=== PATIENT | female | born 1940 | race Caucasian/White ===

== ENCOUNTER 2020-01-19 02:23 | Day surgery (SDC) | payer MEDICARE, OTHER, SELFPAY ==
[2020-01-15 08:52] VITALS: BMI 24.5
[2020-01-19 07:07] VITALS: BP 150/80; PULSE 89; RESP 18; TEMP 36.7; O2SAT 97
[2020-01-19] MEDS: LACTATED RINGERS 1,000 ML 150 ML IV CONT (07:12)
--- NOTE | 2020-01-19 07:57 | WPDANESEPPF ---
Anes - Initial Pre Proc Eval Procedure: Operation Date: 01/19/20 08:00 Proposed Procedures p Colonoscopy - Júnior Collier MD Date/Time: 01/19/20 07:57 Surgeon: Júnior Collier MD Pre Op Diagnosis: positive cologuard, hx polyps Patient Data Age: 79 Gender: F Height: 5 ft Weight: 56.9 kg Last Vital Signs Temp 36.7 C 01/19/20 07:07 Pulse 89 01/19/20 07:07 Resp 18 01/19/20 07:07 BP 150/80 H 01/19/20 07:07 Pulse Ox 97 01/19/20 07:07 Allergies Allergy/AdvReac Type Severity Reaction Status Date / Time No Known Allergies Allergy Verified 01/19/20 06:59 Home Medications Medication Instructions Recorded Confirmed Type alprazolam 0.25 mg PO DAILY PRN 01/15/20 01/19/20 History fluoride (sodium) [PreviDent 5000 1 applic PO HS 01/15/20 01/19/20 History Dry Mouth] lisinopril 5 mg PO QAM 01/15/20 01/19/20 History nystatin-triamcinolone 1 applic TOPICAL DAILY PRN 01/15/20 01/19/20 History simvastatin 20 mg PO HS 01/15/20 01/19/20 History Patient hx anesthesia problems: none Family hx anesthesia problems: none PMFSH Past Medical History Medical History Hyperlipidemia Hypertension Anes - Eval Final PreProcedure Day of Procedure 01/19/20 07:57 Patient weight: normal Heart: regular rate and rhythm Lungs: clear to auscultation Airway: Mallampati scale class 1 Neurological: alert and oriented Last oral intake: >/= 8 hours ASA classification: II Emergent: no Anesthetic plan: proceed Anesthesia type and monitoring: general GIVS and standard monitoring Informed Consent: The patient's anesthetic plan and its attendant risks and benefits were discussed with the patient/family/POA. Questions were solicited and answers provided to the satisfaction of the patient/family/POA.
--- NOTE | 2020-01-19 08:03 | P.CONGI_ITS ---
Assessment and Plan Additional Plan This is a 79-year-old white female patient seen in evaluation at the request of Dr. Zavala. Patient is referred because of a positive: ColoGuard test. Patient states that her current weight appetite bowel movements are normal. She denies abdominal pain she denies any blood in her stools. She does have a history of hemorrhoids her occasionally sore cause some discomfort. She denies any obvious bleeding. Past medical history is significant for colon polyps identified by colonoscopy [place] [address] Briggs. She has been treated for hyperlipidemia and hypertension. family history is noncontributory. There is no known history of colon or rectal disease within the family. Current medications include alprazolam. Lisinopril. And simvastatin. She has no stated drug allergies. Physical exam reveals patient to be alert. Vital signs stable. HEENT exam unremarkable. She is anicteric. Lungs are clear to auscultation and percussion. Heart is without murmur or extra sounds. Abdominal exam bowel sounds are present soft nontender with no organomegaly. Digital external rectal exam is normal. Impression 1. Personal history of colon polyps. 2. Rectal pain. 3. History hemorrhoids. 4. Positive: ColoGuard test. Plan is for a high-fiber diet. Fiber supplements may help. Colonoscopy will be performed for screening purposes now and advised in 5 years. GI Consult Note Consult date/time: 01/19/20 08:03 HPI: Kayla Iqbal is a 79 year old female FORMERLY [facility], 1928–1983 Past Medical History Medical History Hyperlipidemia Hypertension Meds Home Medications and Allergies Home Medications Medication Instructions Recorded Confirmed Type alprazolam 0.25 mg PO DAILY PRN 01/15/20 01/19/20 History fluoride (sodium) [PreviDent 5000 1 applic PO HS 01/15/20 01/19/20 History Dry Mouth] lisinopril 5 mg PO QAM 01/15/20 01/19/20 History nystatin-triamcinolone 1 applic TOPICAL DAILY PRN 01/15/20 01/19/20 History simvastatin 20 mg PO HS 01/15/20 01/19/20 History Allergies Allergy/AdvReac Type Severity Reaction Status Date / Time No Known Allergies Allergy Verified 01/19/20 06:59 Vital Signs Vital Signs - 24 hr 01/19/20 07:07 Temperature 36.7 C Pulse Rate 89 Respiratory Rate 18 Blood Pressure 150/80 H Pulse Oximetry 97
[2020-01-19 08:24] VITALS: BP 105/57; PULSE 69; RESP 18; O2SAT 100
[2020-01-19 08:34] VITALS: BP 122/67; PULSE 63; RESP 18; O2SAT 100
[2020-01-19 08:44] VITALS: BP 102/79; PULSE 53; RESP 18; O2SAT 100
== END 2020-01-19 09:12 | disposition home or self-care (01) ==
PROVIDERS: PCP Internal Medicine; Visit Provider Internal Medicine Gastroenterology
PROC: 0DJD8ZZ Inspection of Lower Intestinal Tract, Via Natural or Artificial Opening Endoscopic (ICD-10-PCS; CPT 45378; principal; 2020-01-19 08:00)
DX: Z12.11 Encounter for screening for malignant neoplasm of colon (principal); R19.5 Other fecal abnormalities; K57.30 Diverticulosis of large intestine without perforation or abscess without bleeding; K64.8 Other hemorrhoids; Z86.010 Personal history of colon polyps; I10 Essential (primary) hypertension; E78.5 Hyperlipidemia, unspecified
CPT/HCPCS: G0105; J2704; J7120